=== PATIENT | female | born 1980 | race Hispanic/Latino ===

== ENCOUNTER 2017-10-01 10:16 | Outpatient (CLI) | payer BC | END 2017-10-01 10:17 | disposition home or self-care (01) | LOC: BICMAMMO 10:16 | PROVIDERS: ATTEND Nurse Practitioner Women's Health | DX: N64.4 Mastodynia (principal) | CPT/HCPCS: 76856; 77066; 93976; G0279 ==

== ENCOUNTER 2020-04-19 09:09 | Outpatient (CLI) | payer OTHER | END 2020-04-19 09:10 | disposition home or self-care (01) | LOC: BICULT 09:09 | PROVIDERS: ATTEND Nurse Practitioner Family | DX: R10.2 Pelvic and perineal pain (principal); R19.09 Other intra-abdominal and pelvic swelling, mass and lump | CPT/HCPCS: 76856; 93975 ==

== ENCOUNTER 2020-04-22 07:31 | Inpatient (IN) | payer BC, SELFPAY ==
[2020-04-22] MEDS ORDERED: Ketorolac Tromethamine 30 MG/ML VIAL ONE (08:26)
[2020-04-22] MEDS ORDERED: Ondansetron PF 4 MG/2 ML Vial ONE (08:26)
[2020-04-22 08:36] LABS: Bilirubin Negative (Negative); Blood, Urine Negative (Negative); Clarity Clear (Clear); Glucose, Urine (Dipstick) Greater than 1000 mg/dL (Negative); Ketone, Urine 100 mg/dL (Negative); Leukocyte Negative Leu/uL (Negative); Nitrite Negative (Negative); Protein, Urine (Dipstick) 20 mg/dL (Neg-Trace); Specific Gravity, Urine 1.043 (1.002-1.036); Urobilinogen Normal mg/dL (Less than 2); pH, Urine 6.5 (5.0-9.0)
[2020-04-22 08:37] LABS: Pregnancy Test - Urine (BHCG) Negative (Negative); Pregu Control Background? CLEAR/WHITE (CLR/WHITE); Pregu Control Bar Appear? YES (CONTROL BAR); Specific Gravity 1.043 (1.002-1.036)
[2020-04-22 08:43] LABS: #Basophils 0.1 thou/uL (0.0-0.2); #Eosinphils 0.2 thou/uL (0.0-0.7); #Lymphocytes 1.6 thou/uL (1.20-3.40); %Basophils 0.4 % (0.0-1.0); %Eosinophils 1.9 % (0.0-10.0); %Lymphocytes 12.3 % (21.0-51.0); %Monocytes 7.8 % (0.0-10.0); %Neutrophils 77.6 % (42.0-75.0); Hemoglobin 13.4 g/dL (12.0-16.0); Mean Corpuscular HGB CONC 32.8 g/dL (32.0-36.0); Mean Corpuscular Hemoglobin 29.8 pg (27.0-31.0); Mean Corpuscular Volume 90.8 fL (78.0-98.0); Mean Platelet Volume 6.2 fL (7.4-10.4); Platelet Count 570 thou/uL (130-400); RBC Distribution Width 11.8 % (11.5-14.5); White Blood Cell (WBC) Count 12.8 thou/uL (4.8-10.8)
[2020-04-22 09:01] LABS: Anion Gap 13 mmol/L (10-20); BUN (Urea Nitrogen) 10 mg/dL (7.0-18.7); Calc. Creatinine Clearance 0 mL/min (70-130); Carbon Dioxide 28 mmol/L (22-29); Chloride 100 mmol/L (98-107); Potassium 4.2 mmol/L (3.5-5.1); Sodium 137 mmol/L (136-145)
[2020-04-22 09:02] LABS: ALT (SGPT) 8 U/L (8-55); AST (SGOT) 11 U/L (5-34); Albumin 3.3 g/dL (3.5-5.0); Alkaline Phosphatase 104 U/L (40-110); Bilirubin, Total 0.4 mg/dL (0.2-1.2); Calcium 9.1 mg/dL (7.8-10.44); Globulin 3.9 g/dL (2.4-3.5); Glucose 324 mg/dL (70-105); Protein, Total 7.2 g/dL (6.0-8.3)
[2020-04-22] MEDS ORDERED: Magnevist 469MG/ML 20 ML VIAL ONE (10:39)
--- NOTE | 2020-04-22 10:55 | ULT ---
Pelvic ultrasound: 04/22/2020 COMPARISON: 04/19/2020 HISTORY: Pelvic pain TECHNIQUE: Multiplanar grayscale sonographic imaging of the pelvis provided with transabdominal and e ndovaginal imaging. The ovaries are assessed with Doppler interrogation including color flow and spectral analysis. FINDINGS: Nonspecific small/moderate volume free fluid is noted in the pelvic colon the sac. Endometr ium measures approximately 6 mm in thickness. The uterus measures 8.5 x 5.1 x 5.5 cm. There is a hypoechoic area in the region of the lower uterine segment measuring 4 x 8 mm, which may represent co mplex cystic structure or small volume complex fluid within the endocervical canal. There is an ill-defined complex hypoechoic abnormality in the "left adnexa" measuring approximately 5 .7 x 4.6 x 4.7 cm. The left ovary cannot be discretely visualized on this exam. There is ill-defined complex hypoechoic abnormality may represent a lesion within the left ovary or adjacent t o the left ovary. The right ovary measures approximately 2.5 x 3.8 x 2.8 cm and demonstrates blood flow. There is an il l-defined hypoechoic lesion immediately adjacent to the superior aspect of the right ovary measuring 5.0 x 2.1 x 2.9 cm. Findings within the adnexal regions appear similar when compared to the prior examination. IMPRESSION: Nonspecific hypoechoic lesions within the left adnexal region and the right para ovarian/ adnexal region. These findings could be related to adnexal/ovarian masses, tubo-ovarian abscess, and/or ectopic in the proper clinical setting. Clinical correlation is advised. As recommen ded on the 04/19/2020 exam, pelvic MRI may be beneficial. Results discussed with Dr. Flaherty 10:50 AM 04/22/2020
[2020-04-22] MEDS ORDERED: Insulin Regular 300 UNITS/3 ML VIAL ONE (15:02)
--- NOTE | 2020-04-22 15:08 | MRI ---
MRI PELVIS WITH AND WITHOUT IV CONTRAST: HISTORY: Pelvic pain, left lower quadrant pain, mass. FINDINGS: There are heterogeneously enhancing bilateral adnexal masses measuring 3.8 cm on the right and 7.4 cm on the left. There is a moderate amount of free fluid in the pelvis with enhancement of the periton eum. No uterine mass is seen. The bony structures are unremarkable. A normal-appearing appendix is present. IMPRESSION: Findings are consistent with bilateral tubo-ovarian abscesses. Discussed over the telephone with ER physician, Dr. Sammy Flaherty, at 2:37 p.m. CODE CR POS: OFF
--- NOTE | 2020-04-22 15:24 | PDOC.BPN ---
- Brief Progress Note Ptaient seen by me. Please see H&P. Hospital pharmacy doesnt carry insulin /30 nor farxiga...I will consult FM to help with DM meds and control
--- NOTE | 2020-04-22 15:26 | PDOC.BPN ---
- Brief Progress Note H&P addendum: Just dictated H&P. Did not dictate that her prior surgery included bilateral cataracts from her DM.
--- NOTE | 2020-04-22 15:32 | PDOC.BPN ---
- Brief Progress Note Discussed case with FM environmental property assessor team. They will assist in care for DM.
--- NOTE | 2020-04-22 15:35 | HP ---
LOCATION: ER bed 5. REASON FOR ADMISSION: Pelvic pain/suspected TOA (tubo-ovarian abscess). HISTORY OF PRESENT ILLNESS: In brief, this patient was first evaluated by Dr. Flaherty in the emergency department with a chief complaint of pelvic pain. This patient states that she has diabetes that has been difficult to control and is followed by Dr. Canela at [facility] in [place]. The patient was actually seen on 04/19/2020 when she had a pelvic ultrasound at that time. She states that she came in for the same complaint of this pretty consistent nonprogressive pelvic pain in the lower pelvis that feels achy. On 04/19, on review of the medical record, I find that she had a gallbladder ultrasound performed, that showed normal abdominal ultrasound. She also had a pelvic ultrasound done on 04/19/2020, which showed that the uterus was about 9 x 5 x 5 cm with an endometrium of 0.7 cm. There was a left poorly seen adnexal mass of about 5 x 5 x 7 cm at that time; and on the right, they could not identify normal-appearing ovary, but again some ill-defined mass about 2 x 2 x 3 cm or so. There was also a "oblong component" measuring 2 x 4 cm, this was described as solid and had blood flow within it, but no abnormal fluid collection. She was sent home at that time. She states that she came back because of this persistent bilateral lower pelvic pressure. She denies any vaginal bleeding outside of a recent period, which she states was on 04/18/2020. She is sexually active with the same partner (male) and states that she is not at risk for STI. She came in today and underwent a repeat ultrasound, which showed findings as before, but had an MRI today for further clarification, and the MRI, per radiologist, is compatible with bilateral tubo-ovarian abscesses. I have also explained this to the patient at bedside. REVIEW OF SYSTEMS: GENERAL: No sick contacts. No fever. No chills. PULMONARY: No shortness of breath. CARDIOVASCULAR: No chest pain. EXTREMITIES: No unusual lower leg extremities or unusual calf pain. PAST MEDICAL HISTORY: She has a history of diabetes, which was undiagnosed for a long period of time according to her story. She is managed by Dr. Canela. She states her sugars run in the 200s. MEDICATIONS: Include: 1. 70/30 insulin 30 units b.i.d. 2. Glyburide 5 mg daily. 3. Farxiga 10 mg daily. 4. Januvia at 100 mg daily. ALLERGIES: NONE. PAST SURGICAL HISTORY: She has had 3 C-sections with a tubal ligation with the last. Bilateral Cataract surgeries. SOCIAL HISTORY: Denies alcohol, tobacco, or drug use. PHYSICAL EXAMINATION: VITAL SIGNS: Blood pressure 125/89, pulse is 95 to 100, and O2 saturation is 98% on room air. GENERAL: I find her in no acute distress, lying comfortably in bed. ABDOMEN: Nondistended and nonrigid. She does have some pain on deep palpation in the bilateral lower quadrants. PELVIC: Deferred. IMAGING STUDIES: Please see HPI for this. ED LABS: WBC 12; normal AST and ALT. Creatinine is .7. Glucose was 320s on CMP. ASSESSMENT: This is a 40-year-old, G3, P3, previous x3, with a history of previous BTL, who has diabetes under poor control, now with persistent (non- acute) pelvic pain bilaterally. MRI with likely bilateral tubo-ovarian abscess. PLAN: 1. I have explained the findings to the patient. 2. Diabetes mellitus. We will continue with her diabetic diet. Continue her same medications and prevent hyperglycemia with p.r.n. lispro or regular insulin. 3. For her TOA: I will begin cefoxitin, doxy, and Flagyl per CDC. 4. Follow symptomatically. 5. I have requested gonorrhea and chlamydia PCR to be done in the emergency department prior to starting antibiotics. I gave this recommendation to Dr. Flaherty who told me he placed the order. 6. We will admit the patient for at least 2 days of antibiotics to see if she is better. I did explain to the patient that this is usually treated medically with repeat ultrasound and followup in 6-8 weeks. I did advise her that it is unlikely that these will resolve completely if these are tubo-ovarian abscesses, though we are more concerned with her feeling better than removal of the mass. I did discuss with her that removal of the mass may be difficult at a later time because of the infection state. 7. If her sugars prove to be difficult to control, we may consult Family Medicine for assistance. Job ID: [id number] [facility]
[2020-04-22] MEDS ORDERED: Dextrose 5% in Water 1,000 ML IV PRN (15:45)
[2020-04-22] MEDS ORDERED: Dextrose 50% Abboject 50 ML SYRINGE SLOW IVP PRN (15:45)
[2020-04-22] MEDS ORDERED: Insulin Regular 300 UNITS/3 ML VIAL SC PRN (15:45)
[2020-04-22 16:32] LABS: Hemoglobin A1c 11.3 % (4.0-6.0)
[2020-04-22 16:59] VITALS: BMI 27.4
[2020-04-22] MEDS: Gemfibrozil 600 MG TAB PO SCH (17:29)
[2020-04-22] MEDS: Lactated Ringer's 1,000 ML IV SCH ×2 (17:30→23:31)
[2020-04-22] MEDS: Doxycycline 100 MG CAP PO SCH (21:28)
[2020-04-22] MEDS: cefOXitin Sodium/Dextrose,Iso 2 GM in Premix Bag 1 BAG IVPB SCH (21:29)
[2020-04-22] MEDS: metroNIDAZOLE 500 MG in Premix Bag 1 BAG IVPB SCH (22:28)
[2020-04-22] MEDS: HumuLIN 70/30 (300 UNITS/3 ML VIAL) SC SCH (22:43)
[2020-04-22] MEDS: HumaLOG 300 UNITS/3 ML VIAL SC PRN (22:45)
[2020-04-22] MEDS ORDERED: Ketorolac Tromethamine 10 MG TAB PO SCH (23:59)
[2020-04-23] MEDS: HumaLOG 300 UNITS/3 ML VIAL SC PRN ×4 (05:58→22:24)
[2020-04-23] MEDS: cefOXitin Sodium/Dextrose,Iso 2 GM in Premix Bag 1 BAG IVPB SCH ×3 (06:00→22:00)
[2020-04-23] MEDS: metroNIDAZOLE 500 MG in Premix Bag 1 BAG IVPB SCH ×3 (06:00→22:00)
--- NOTE | 2020-04-23 06:28 | PDOC.BPN ---
- Brief Progress Note Encounter Date: 04/23/20 Encounter Time: 06:30 HD2 Admitted Wednesday04/22/20 DX: Likely Bilateral TOAs with left 7cm S. States feels about the same this AM. Hanna po. O. Afebrile since admit. Initial WBC 12...CBC pending today 1400 BPs 120/80-110s/60 Abd: nondistended A/P: HD 2 on IV cefoxition, flagyl and po doxy. GC and CHL pending.VP3 negative. As ABX only 1 day, continue plan. I am aware that TOAs greater than 5cm may take longer to improve...this was discussed with her.
--- NOTE | 2020-04-23 06:37 | PDOC.PP ---
Post Progress Note Post Day #: 6 hrs Subjective: awake and holding baby. states doing well, thankful for good outcome PO intake tolerated: yes Flatus: yes Ambulation: yes Vital Signs (12 hours) Temp Pulse Resp BP Pulse Ox 04/22/20 19:45 98.7 F 77 18 112/61 99 Weight Weight 150 lb Vitals reviewed: BP max 123/80. Afebrile. Meds: still on A/G/Clinda for 24 hrs - Physical Examination General: NAD Respiratory: non-labored breathing Abdominal: no distention Result Diagrams: 04/22/20 08:31 04/22/20 08:31
[2020-04-23] MEDS: Ketorolac Tromethamine 10 MG TAB PO SCH ×3 (06:59→19:01)
[2020-04-23 07:07] LABS: SARS-CoV-2 PCR by NAA Not Detected (NotDetected)
--- NOTE | 2020-04-23 07:21 | PDOC.FM ---
- Subjective Subjective: Pt says she was nauseous last night, but she feels better this morning. She says the pain is a 7/10 currently. - Objective MAR Reviewed: Yes Vital Signs & Weight: Vital Signs (12 hours) Temp Pulse Resp BP Pulse Ox 04/23/20 00:55 16 04/22/20 19:45 98.7 F 77 18 112/61 99 Weight Weight 68.039 kg Result Diagrams: 04/22/20 08:31 04/22/20 08:31 Phys Exam - Physical Examination Constitutional: NAD HEENT: moist MMs, sclera anicteric Neck: supple Respiratory: clear to auscultation bilateral Cardiovascular: RRR, no significant murmur Gastrointestinal: soft, positive bowel sounds tender in left lower quadrant Musculoskeletal: no edema, pulses present Neurological: moves all 4 limbs Lymphatic: no nodes Psychiatric: normal affect Skin: no rash Dx/Plan (1) TOA (tubo-ovarian abscess) Code(s): N70.93 - SALPINGITIS AND OOPHORITIS, UNSPECIFIED Status: Acute (2) HLD (hyperlipidemia) Code(s): E78.5 - HYPERLIPIDEMIA, UNSPECIFIED Status: Acute (3) HTN (hypertension) Code(s): I10 - ESSENTIAL (PRIMARY) HYPERTENSION Status: Acute (4) IDDM (insulin dependent diabetes mellitus) Code(s): MMX6920 - Status: Acute - Plan Plan: Pt is a 40 yo F with pmh HTND, DM II, HLD, and Glaucoma in the L eye who prese nts for LLQ pain. 1. Tubo-ovarian Abscess WBC: 12.8 -Imaging * MRI: Bilateral Tubo-ovarian Abscess * Pelvic US: Hypointense lesions both adnexa -Meds: Doxy, Flagyl, and Cefoxitin * Tried on Ciprofloxacin without success 2. DMII Home meds: Farxiga, Januvia, Novolog 30U BID, Glyburide * Stopped Glyburide -SSI, Hypoglycemia protocol, ACHS checks -A1C: 9 > 11.3 -Will see what daily requirements are and reassess as needed 3. HTN Home meds: Lisinopril -Will continue and monitor BP 4. HLD Home meds: Gemfibrozil -Will continue 5. Glaucoma of Left eye -MD aware, currently on no medications Dispo: Will adjust insulin based on 24 hour requirement.
[2020-04-23] MEDS ORDERED: glyBURIDE 5 MG TAB PO SCH (08:00)
[2020-04-23] MEDS ORDERED: Alogliptin 25 MG TAB PO SCH (09:00)
[2020-04-23] MEDS ORDERED: FLU VACC QS2020-21(6MOS UP)/PF 60 MCG/0.5 ML SYRINGE IM ONE (09:00)
[2020-04-23] MEDS: Gemfibrozil 600 MG TAB PO SCH ×2 (09:00→16:57)
[2020-04-23] MEDS ORDERED: Ketorolac Tromethamine 10 MG TAB PO SCH (09:00)
[2020-04-23] MEDS: Empagliflozin 25 MG TAB PO SCH (09:01)
[2020-04-23] MEDS: Doxycycline 100 MG CAP PO SCH ×2 (09:01→21:59)
[2020-04-23] MEDS: Alogliptin 25 MG TAB PO SCH (09:02)
[2020-04-23] MEDS: Lisinopril 10 MG TAB PO SCH (09:02)
[2020-04-23] MEDS: Lactated Ringer's 1,000 ML IV SCH ×2 (09:03→14:44)
[2020-04-23] MEDS: HumuLIN 70/30 (300 UNITS/3 ML VIAL) SC SCH ×2 (09:07→22:01)
--- NOTE | 2020-04-23 12:40 | CON ---
DATE OF CONSULTATION: 04/22/2020 SERVICE: [facility]. REASON FOR CONSULTATION: Type 2 diabetes management. HISTORY OF PRESENT ILLNESS: The patient is a 40-year-old female, with a history of high cholesterol, hypertension, diabetes, and glaucoma in the left eye, who presents for pain in the left lower quadrant. The patient states the pain started at 9-10 years of age and worsened after her . She says she usually has the pain before her periods and it usually lasts 2-3 days. However, on 04/06, the patient said that the left lower quadrant pain she had would not resolve and has been ongoing since. The pain she characterizes as a burning or stabbing pain that does not radiate. She says the pain is a 10/10 at times, but currently an 8/10. She went to her doctorHilton her nurse practitioner on 04/11. She was given naproxen and ciprofloxacin. The patient completed the course of antibiotics on the of this month. She says she still was experiencing pain, so she decided to come to the ER to get checked out. In the ER, she was given 6 units of Novolin, Toradol 15 mg, Zofran 4 mg IV, and 1 L of fluid of normal saline. PAST MEDICAL HISTORY: Hyperlipidemia, hypertension, diabetes type 2, and glaucoma of left eye. FAMILY MEDICAL HISTORY: None. PAST SURGICAL HISTORY: Cataracts bilaterally, shunt in left eye, and three C- sections. SOCIAL HISTORY: Denies any tobacco, alcohol, or recreational drug use. She has had 2 total lifetime sexual partners and currently has 1 sexual partner, which is her , whom she is monogamous with and does not use condoms. She lives with her and 3 children. REVIEW OF SYSTEMS: Negative for headache, fever, vision changes, congestion, chest pain, shortness of breath, cough, constipation, diarrhea, vomiting, pain, weakness, numbness, syncope, polyuria, polydipsia, rash. Review of systems was positive for nausea and left lower quadrant pain. PHYSICAL EXAMINATION: VITAL SIGNS: Heart rate 105, respiratory rate 19, O2 saturation 97 on room air, blood pressure 131/82, temperature 98.7, weight 68.4 kg. HEAD: Normocephalic, atraumatic. EYES: Pupils equal, round, reactive to light and accommodation. Extraocular movements intact. ENT: Moist mucous membranes. Clear oropharynx with no lesions. NECK: Supple. HEART: Tachycardic with regular rhythm. No murmurs. RESPIRATORY: Clear to auscultation bilaterally. No increased work of breathing. CHEST: Symmetric movement with inspiration. ABDOMEN: Normal bowel sounds. Tenderness to palpation over the left lower quadrant. No CVA tenderness present. NEURO: Sensation intact. Strength 5/5 in all extremities. Cranial nerves 2 through 12 grossly intact. BACK: Normal on examination with no tenderness. MEDICATIONS: The patient's home medications consist of: 1. Farxiga 10 mg daily. 2. Januvia 100 mg daily. 3. Lisinopril 10 mg daily. 4. Gemfibrozil 600 mg b.i.d. 5. Glyburide 5 mg daily. 6. NovoLog 70/30, 30 units b.i.d. 7. Ciprofloxacin. IMAGIN. MRI that showed bilateral tubo-ovarian abscess. 2. Pelvic ultrasound showed nonspecific hypoechoic lesions in both right and left adnexal regions and recommended MRI. LABORATORY DATA: Significant for a glucose of 324, white blood cell count of 12.8, and platelet count of 570 with an increased neutrophil count. No bands present. Her urine showed a glucose of greater than a 1000 and ketones of greater than 100. ASSESSMENT AND PLAN: The patient is a 40-year-old female, with hypertension, hyperlipidemia, diabetes, and glaucoma, who presents for left lower quadrant pain. 1. Tubo-ovarian abscess. The patient was admitted to the [facility] and is currently being treated with cefoxitin, metronidazole, and doxycycline. MRI and pelvic ultrasound as above. 2. Diabetes type 2. The patient's home medications consist of 70/30, 30 units b.i.d. of NovoLog, glyburide 5 mg daily, Januvia 100 mg daily, Farxiga 10 mg daily. We will continue all home medications except for her glyburide as likely it is ineffective since the patient is already on insulin. We will get an A1c. ACHS glucose checks with sliding scale insulin, that is moderate. Hypoglycemia precautions placed. We will adjust insulin regimen as needed. 3. Hypertension. Continue lisinopril 10 mg daily. 4. Hyperlipidemia. Continue gemfibrozil 600 mg b.i.d. 5. Glaucoma of the left eye, MD aware. 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 Job ID: [id number] I personally evaluated the patient and discussed the management with Dr. Wu on 04/22/19. I agree with the History, Examination, Assessment and Plan documented above with any addition or exceptions noted below. VANESSA
[2020-04-23 13:25] LABS: #Eosinphils 0.2 thou/uL (0.0-0.7); #Lymphocytes 2.3 thou/uL (1.20-3.40); #Monocytes 1.2 thou/uL (0.11-0.59); #Neutrophils 10.3 thou/uL (1.40-6.50); %Basophils 0.3 % (0.0-1.0); %Eosinophils 1.6 % (0.0-10.0); %Lymphocytes 16.3 % (21.0-51.0); %Monocytes 8.5 % (0.0-10.0); %Neutrophils 73.4 % (42.0-75.0); Hemoglobin 12.4 g/dL (12.0-16.0); Mean Corpuscular HGB CONC 33.6 g/dL (32.0-36.0); Mean Corpuscular Hemoglobin 30.5 pg (27.0-31.0); Mean Corpuscular Volume 90.6 fL (78.0-98.0); Mean Platelet Volume 5.9 fL (7.4-10.4); Platelet Count 550 thou/uL (130-400); RBC Distribution Width 11.7 % (11.5-14.5); Red Blood Cell (RBC) Count 4.09 mill/uL (4.20-5.40); White Blood Cell (WBC) Count 14.1 thou/uL (4.8-10.8)
[2020-04-23 21:20] LABS: Chlamydia by PCR Not Detected (NotDetected); GC by PCR Not Detected (NotDetected)
[2020-04-24] MEDS: Ketorolac Tromethamine 10 MG TAB PO SCH ×4 (00:23→17:40)
[2020-04-24] MEDS: Lactated Ringer's 1,000 ML IV SCH ×4 (00:23→20:15)
[2020-04-24] MEDS: cefOXitin Sodium/Dextrose,Iso 2 GM in Premix Bag 1 BAG IVPB SCH ×3 (07:33→22:41)
--- NOTE | 2020-04-24 07:48 | PDOC.FM ---
- Subjective Subjective: Pt states shes is feeling well this morning. She had pain this morning in the left lower quadrant with getting up, but the pain meds and heating pad have helped. - Objective MAR Reviewed: Yes Vital Signs & Weight: Vital Signs (12 hours) Temp Pulse Resp BP Pulse Ox 04/24/20 00:22 98.2 F 82 20 104/68 96 Weight Weight 68.039 kg Result Diagrams: 04/23/20 13:10 04/22/20 08:31 Phys Exam - Physical Examination Constitutional: NAD HEENT: moist MMs, sclera anicteric Neck: supple Respiratory: clear to auscultation bilateral Cardiovascular: RRR, no significant murmur Gastrointestinal: soft, non-tender, positive bowel sounds Musculoskeletal: pulses present Neurological: moves all 4 limbs Lymphatic: no nodes Psychiatric: normal affect Skin: no rash Dx/Plan (1) TOA (tubo-ovarian abscess) Code(s): N70.93 - SALPINGITIS AND OOPHORITIS, UNSPECIFIED Status: Acute (2) HLD (hyperlipidemia) Code(s): E78.5 - HYPERLIPIDEMIA, UNSPECIFIED Status: Acute (3) HTN (hypertension) Code(s): I10 - ESSENTIAL (PRIMARY) HYPERTENSION Status: Acute (4) IDDM (insulin dependent diabetes mellitus) Code(s): GSD1683 - Status: Acute - Plan Plan: Pt is a 40 yo F with pmh HTND, DM II, HLD, and Glaucoma in the L eye who presents for LLQ pain. 1. Tubo-ovarian Abscess WBC: 12.8 > 14.1 -Imaging * MRI: Bilateral Tubo-ovarian Abscess * Pelvic US: Hypointense lesions both adnexa -Meds: Doxy, Flagyl, and Cefoxitin * Tried on Ciprofloxacin without success * Will continue Antibiotics for now 2. DMII Home meds: Farxiga, Januvia, Novolog 30U BID, Glyburide * Stopped Glyburide -SSI, Hypoglycemia protocol, ACHS checks -A1C: 9 > 11.3 -Will see what daily requirements are and reassess as needed -Blood sugar was 78 this morning. Will not increase her morning insulin. -She required 14 units sliding scale overall 3. HTN Home meds: Lisinopril -Will continue and monitor BP 4. HLD Home meds: Gemfibrozil -Will continue 5. Glaucoma of Left eye -MD aware, currently on no medications Dispo: Will adjust insulin as needed. Sugars are improving with treatment of abscesses.
[2020-04-24] MEDS: metroNIDAZOLE 500 MG in Premix Bag 1 BAG IVPB SCH ×3 (07:50→21:10)
--- NOTE | 2020-04-24 08:14 | PRG ---
DATE OF SERVICE: 04/24/2020 SUBJECTIVE: The patient is a 40-year-old female who presented to the emergency room on 04/22/2020 and was diagnosed with bilateral tubo-ovarian abscesses and admitted to the hospital for IV antibiotics. The patient is currently on cefoxitin, Flagyl, and doxycycline. The patient reports that she continues to have some pain, though seems to be fairly well managed with her current regimen. OBJECTIVE: VITAL SIGNS: The patient has been afebrile overnight. Current vital signs; 104/68 is blood pressure, temperature 98.2, pulse of 82, respiratory rate 20, saturating 96% on room air. GENERAL: She appears to be in no acute distress this morning. She reports that she had some pain when she got up to go to the bathroom, but Toradol seemed to have improved her pain. LABORATORY DATA: White count is up slightly from 12.8 to 14.1, hemoglobin 12.4, hematocrit 37.0, platelets stable at 550,000. Left shift is coming down, that is 73.4%. VPIII has returned and is negative for Trichomonas, Gardnerella, and Meliza. GC/chlamydia is still pending. Her other diagnoses of significance include diabetes that is being managed by the family medicine team, who was consulted on the case. Anticipate antibiotic use for the next day or two and possible discharge home with p.o. antibiotics. Job ID: [id number]
[2020-04-24] MEDS: Gemfibrozil 600 MG TAB PO SCH ×2 (08:38→16:13)
[2020-04-24] MEDS: Doxycycline 100 MG CAP PO SCH ×2 (08:38→21:10)
[2020-04-24] MEDS: Empagliflozin 25 MG TAB PO SCH (08:38)
[2020-04-24] MEDS: Alogliptin 25 MG TAB PO SCH (08:39)
[2020-04-24] MEDS: Lisinopril 10 MG TAB PO SCH (08:39)
[2020-04-24] MEDS ORDERED: Insulin Glargine 24 UNITS in Pre-Filled Syringe 1 EACH SC SCH (09:45)
[2020-04-24] MEDS: HumuLIN 70/30 (300 UNITS/3 ML VIAL) SC SCH (09:46)
[2020-04-24] MEDS: HumaLOG 300 UNITS/3 ML VIAL SC PRN ×2 (12:17→17:41)
[2020-04-24] MEDS ORDERED: HYDROcodone/Acetaminophen 5/325 mg Tablet PO PRN (20:49)
[2020-04-24] MEDS: HYDROcodone/Acetaminophen 5/325 mg Tablet PO PRN (21:09)
[2020-04-24] MEDS: Insulin Glargine 24 UNITS in Pre-Filled Syringe 1 EACH SC SCH (21:16)
[2020-04-25] MEDS: Ketorolac Tromethamine 10 MG TAB PO SCH ×4 (00:02→17:29)
[2020-04-25] MEDS: metroNIDAZOLE 500 MG in Premix Bag 1 BAG IVPB SCH ×3 (05:29→21:13)
[2020-04-25] MEDS: HYDROcodone/Acetaminophen 5/325 mg Tablet PO PRN ×4 (05:39→22:36)
--- NOTE | 2020-04-25 06:03 | PDOC.BPN ---
- Brief Progress Note Encounter Date: 04/25/20 Encounter Time: 06:00 S: Patient had pain uncontrolled with toradol yesterday. Pain much improved with addition of Whitney. No other complaints this morning. O: Vital Signs - Most Recent Temp Pulse Resp BP Pulse Ox 98.2 F 83 18 110/58 L 98 04/25/20 05:39 04/25/20 05:39 04/25/20 05:39 04/25/20 05:39 04/25/20 05:39 Gen: AAO, NAD Abd: soft, TTP LLQ>RLQ, no rebound Ext: No edema Labs: Pending A/P: 40 y/o with bilateral TOA on Doxy/Flagyl/Cefoxitin. Tm 99.3. Toradol and Whitney for pain control. Will repeat CBC this morning to assess trend. Continue current management.
[2020-04-25 06:27] LABS: #Basophils 0.1 thou/uL (0.0-0.2); #Eosinphils 0.3 thou/uL (0.0-0.7); #Monocytes 1.1 thou/uL (0.11-0.59); #Neutrophils 9.9 thou/uL (1.40-6.50); %Basophils 0.4 % (0.0-1.0); %Eosinophils 2.1 % (0.0-10.0); %Lymphocytes 14.7 % (21.0-51.0); %Monocytes 8.6 % (0.0-10.0); %Neutrophils 74.2 % (42.0-75.0); Hemoglobin 11.6 g/dL (12.0-16.0); Mean Corpuscular HGB CONC 32.3 g/dL (32.0-36.0); Mean Corpuscular Volume 89.8 fL (78.0-98.0); Platelet Count 489 thou/uL (130-400); Red Blood Cell (RBC) Count 4.01 mill/uL (4.20-5.40); White Blood Cell (WBC) Count 13.3 thou/uL (4.8-10.8)
[2020-04-25] MEDS: cefOXitin Sodium/Dextrose,Iso 2 GM in Premix Bag 1 BAG IVPB SCH ×3 (06:44→22:40)
[2020-04-25] MEDS: Lactated Ringer's 1,000 ML IV SCH ×3 (06:48→23:30)
--- NOTE | 2020-04-25 07:01 | PDOC.FM ---
- Subjective Subjective: The pt is doing better this morning. She is denying any pain currently. - Objective MAR Reviewed: Yes Vital Signs & Weight: Vital Signs (12 hours) Temp Pulse Resp BP Pulse Ox 04/25/20 05:39 98.2 F 83 18 110/58 L 98 04/25/20 00:00 98.7 F 87 18 115/71 99 04/24/20 19:22 99.3 F 88 12 120/83 99 Weight Weight 68.039 kg I&O: 04/23/20 04/24/20 04/25/20 06:59 06:59 06:59 Intake Total 5050 Output Total 4150 Balance 900 Result Diagrams: 04/25/20 06:18 04/22/20 08:31 Phys Exam - Physical Examination Constitutional: NAD HEENT: moist MMs, sclera anicteric Neck: supple Respiratory: clear to auscultation bilateral Cardiovascular: RRR, no significant murmur Gastrointestinal: soft, non-tender, positive bowel sounds Musculoskeletal: no edema, pulses present Neurological: moves all 4 limbs Psychiatric: normal affect Skin: no rash, normal turgor Dx/Plan (1) TOA (tubo-ovarian abscess) Code(s): N70.93 - SALPINGITIS AND OOPHORITIS, UNSPECIFIED Status: Acute (2) HLD (hyperlipidemia) Code(s): E78.5 - HYPERLIPIDEMIA, UNSPECIFIED Status: Acute (3) HTN (hypertension) Code(s): I10 - ESSENTIAL (PRIMARY) HYPERTENSION Status: Acute (4) IDDM (insulin dependent diabetes mellitus) Code(s): KCW7444 - Status: Acute - Plan Plan: Pt is a 40 yo F with pmh HTND, DM II, HLD, and Glaucoma in the L eye who presents for LLQ pain. 1. Tubo-ovarian Abscess WBC: 12.8 > 13.3 -Imaging * MRI: Bilateral Tubo-ovarian Abscess * Pelvic US: Hypointense lesions both adnexa -Meds: Doxy, Flagyl, and Cefoxitin * Tried on Ciprofloxacin without success * Primary team managing Abx 2. DMII Home meds: Farxiga, Januvia, Novolog 30U BID, Glyburide * Stopped Glyburide -SSI, Hypoglycemia protocol, ACHS checks -A1C: 9 > 11.3 -Will see what daily requirements are and reassess as needed -Blood sugar was 78 this morning. Will not increase her morning insulin. -She required 6 units sliding scale yesterday -Changed from Novolog to Levemir 24 U BID, BG 98-226 will increase by 1U BID 3. HTN Home meds: Lisinopril -Will continue and monitor BP 4. HLD Home meds: Gemfibrozil -Will continue 5. Glaucoma of Left eye -MD aware, currently on no medications Dispo: Adjusted insulin. Will continue to follow and adjust.
[2020-04-25] MEDS: Insulin Glargine 24 UNITS in Pre-Filled Syringe 1 EACH SC SCH (09:45)
[2020-04-25] MEDS: Lisinopril 10 MG TAB PO SCH (09:45)
[2020-04-25] MEDS: Gemfibrozil 600 MG TAB PO SCH ×2 (09:46→17:30)
[2020-04-25] MEDS: Doxycycline 100 MG CAP PO SCH ×2 (09:46→21:12)
[2020-04-25] MEDS: Empagliflozin 25 MG TAB PO SCH (09:46)
[2020-04-25] MEDS: Alogliptin 25 MG TAB PO SCH (09:46)
[2020-04-25] MEDS ORDERED: Insulin Glargine 25 UNITS in Pre-Filled Syringe 1 EACH SC SCH (21:00)
[2020-04-26] MEDS: Ketorolac Tromethamine 10 MG TAB PO SCH ×3 (00:07→12:11)
[2020-04-26] MEDS: Lactated Ringer's 1,000 ML IV SCH ×2 (02:45→15:12)
[2020-04-26] MEDS: metroNIDAZOLE 500 MG in Premix Bag 1 BAG IVPB SCH (05:13)
[2020-04-26] MEDS: HumaLOG 300 UNITS/3 ML VIAL SC PRN ×2 (06:18→20:41)
[2020-04-26] MEDS: cefOXitin Sodium/Dextrose,Iso 2 GM in Premix Bag 1 BAG IVPB SCH (06:22)
[2020-04-26] MEDS: HYDROcodone/Acetaminophen 5/325 mg Tablet PO PRN ×3 (06:26→16:23)
--- NOTE | 2020-04-26 06:49 | PDOC.FM ---
- Subjective Subjective: Discussed with pt about insulin. She says she had swelling all over with lantus, but she has been getting the medication here. She also states she is out of test strips to check her sugars at home. She says her pain is improved and is now 5/10. - Objective MAR Reviewed: Yes Vital Signs & Weight: Vital Signs (12 hours) Temp Pulse Resp BP Pulse Ox 04/26/20 05:05 98.7 F 78 18 110/65 04/26/20 00:05 98.5 F 87 18 114/65 04/25/20 19:31 98.5 F 83 12 107/66 98 Weight Weight 68.039 kg I&O: 04/24/20 04/25/20 04/26/20 06:59 06:59 06:59 Intake Total 5050 Output Total 4150 Balance 900 Result Diagrams: 04/25/20 06:18 04/22/20 08:31 Phys Exam - Physical Examination Constitutional: NAD HEENT: moist MMs, sclera anicteric Neck: supple Respiratory: clear to auscultation bilateral Cardiovascular: RRR, no significant murmur Gastrointestinal: soft, positive bowel sounds tender to palpitation in the lower quadrants Musculoskeletal: no edema, pulses present Neurological: moves all 4 limbs Psychiatric: normal affect Skin: no rash Dx/Plan (1) TOA (tubo-ovarian abscess) Code(s): N70.93 - SALPINGITIS AND OOPHORITIS, UNSPECIFIED Status: Acute (2) HLD (hyperlipidemia) Code(s): E78.5 - HYPERLIPIDEMIA, UNSPECIFIED Status: Acute (3) HTN (hypertension) Code(s): I10 - ESSENTIAL (PRIMARY) HYPERTENSION Status: Acute (4) IDDM (insulin dependent diabetes mellitus) Code(s): [id number] - Status: Acute - Plan Plan: Pt is a 40 yo F with pmh HTND, DM II, HLD, and Glaucoma in the L eye who presents for LLQ pain. 1. Tubo-ovarian Abscess WBC: 12.8 > 13.3 -Imaging * MRI: Bilateral Tubo-ovarian Abscess * Pelvic US: Hypointense lesions both adnexa -Meds: Doxy, Flagyl, and Cefoxitin * Tried on Ciprofloxacin without success * Primary team managing Abx 2. DMII Home meds: Farxiga, Januvia, Novolog 30U BID, Glyburide * Stopped Glyburide -SSI, Hypoglycemia protocol, ACHS checks -A1C: 9 > 11.3 -Will see what daily requirements are and reassess as needed -Blood sugar was 78 this morning. Will not increase her morning insulin. -She required 6 units sliding scale yesterday -Changed from Novolog to Lantus 52 QAM, BG 75-240 will keep the insulin at this current level * Pt stated that Lantus made her swell in the past. She is ok with trying the medication again. 3. HTN Home meds: Lisinopril -Will continue and monitor BP 4. HLD Home meds: Gemfibrozil -Will continue 5. Glaucoma of Left eye -MD aware, currently on no medications Dispo: Insulin appropriately titrated.
[2020-04-26] MEDS: Gemfibrozil 600 MG TAB PO SCH ×2 (07:53→16:23)
--- NOTE | 2020-04-26 08:11 | PRG ---
DATE OF SERVICE: 04/26/2020 TIME OF SERVICE: 0710 hours. SUBJECTIVE: Ms. 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 She is resting comfortably this morning. Reports that her pain at max is 6/10. She has had some nausea, no vomiting overnight. OBJECTIVE: VITAL SIGNS: T-max and T-current 98.7, pulse 78, respirations 18, blood pressure 110/65. HEENT: Within normal limits. LUNGS: Clear to auscultation bilaterally. HEART: Regular rhythm. ABDOMEN: Nondistended. Bowel sounds heard in all 4 quadrants. She has tenderness to palpation in the left lower quadrant. She has no rebound. EXTREMITIES: Without clubbing, cyanosis, or edema. VAGINAL/PELVIC: Deferred. LABORATORY DATA: The patient's white count yesterday was trending down. We will repeat tomorrow. Her hemoglobin A1c is 11.6, indicating poor chronic control of her diabetes. Blood sugar last night was 162. During the day yesterday, they ran between 75 and 226, managed by Family Medicine residents. Cultures are no growth. Imaging was reviewed and discussed with Radiology. They did not feel there was a drainable fluid collection and that the findings on MRI are more suggestive of a soft tissue rather than abscess. IMPRESSION: Chronic tubo-ovarian abscess possibly linked to diverticulitis considering location and patient's age and her post tubal ligation status. This is unlikely a sexually transmitted tubo-ovarian abscess or chronic salpingitis. Complicated by prior section history as well as diabetes. PLAN: Discussed with the patient options. I feel surgery at this point in time is not warranted and is likely to be less than satisfactory as well as significantly difficult. We will continue on IV antibiotics. Plan to do so for approximately 6 to 7 days. If remains afebrile, consider discharge home on fluoroquinolone for another 2 weeks with re-evaluation after that. May consider re-evaluating with MRI at approximately antibody day #6 to #8. The patient understands this treatment plan and is agreeing with that. Job ID: [id number]
--- NOTE | 2020-04-26 08:12 | PDOC.BPN ---
- Brief Progress Note OnCall note HD5 DX: Presumed TOAs bilaterally Continue ABX IR did not feel like the left mass area was amendable to drainage as more in flammatory than purulent (phlegmon). Continue plan.
[2020-04-26] MEDS: Alogliptin 25 MG TAB PO SCH (09:27)
[2020-04-26] MEDS: Empagliflozin 25 MG TAB PO SCH (09:27)
[2020-04-26] MEDS: Lisinopril 10 MG TAB PO SCH (09:28)
[2020-04-26] MEDS: Insulin Glargine 52 UNITS in Pre-Filled Syringe 1 EACH SC SCH (09:28)
[2020-04-26] MEDS: Doxycycline 100 MG CAP PO SCH ×2 (09:28→20:40)
--- NOTE | 2020-04-26 10:35 | PDOC.BPN ---
<Kiley Barrett - Last Filed: 04/26/20 10:28> - Brief Progress Note Encounter Date: 04/26/20 Encounter Time: 10:00 Ms. Grover is a 40 year old female hospitalized for a suspected tuboovarian abscess. She was doing well this morning at the time of the exam. She continues reporting LLQ burning pain with intermittent sharp pain; rates it a severity of 5/10. These are mitigated with pain medication. She reports being nauseous without any episodes of emesis along with some diarrhea likely due to antibiotics. She also reports occasional vaginal spotting that began last night - did not require sanitary pads or tampons and did not soak through her underwear. Denies it being a steady flow and is not heavy. She denies any dysuria, dizziness, chest pain, shortness of breath, hematuria, hematochezia, loss of appetite and chills. Physical exam CTAB RRR NABS, tender to palpation primarily in LLQ, soft, non-distended No peripheral edema Plan * Possibly manage nausea with phenergan * continue pain management * continue antibiotics for management of presumed TOA <Clint Ramos - Last Filed: 04/26/20 10:40> - Brief Progress Note Facul;ty Note: Agreed. We will start Zofran to avoid over-sedation with pheneragan. Hct noted...dilation effect? Trend and follow
[2020-04-26] MEDS ORDERED: Ondansetron PF 4 MG/2 ML Vial IVP PRN (10:38)
--- NOTE | 2020-04-26 10:45 | PDOC.BPN ---
- Brief Progress Note JULIÁN HD 5 As afebrile since admit, I will transition to PO ABX as we plan on possible home transition soon. Would recommend po DOXY and po FLAGYL for now. She is concerned about getting home and if better on po ABX for 24-48 hrs, may DC home as this is likely chronic condition. Total ABX use 14 days.
[2020-04-26] MEDS: metroNIDAZOLE 500 MG TAB PO SCH ×2 (15:11→20:40)
--- NOTE | 2020-04-27 03:34 | PDOC.BPN ---
- Brief Progress Note HD6 DX: IDDM, TOAs bilaterally. Pelvic pain Meds: po Doxy and Flagyl S. Feels better than at admit but still has some left lower abd "buring" sensation. Hanna po. O.Tmax 99.p' BPs wnl 120-110/70s on average, pulse 80-90s. CBC pending this AM. PE: NAD Nonsurgical ABD (no distension, no guarding) A/P: HD6 with IDDM and bilateral TOAs Left greater than rt...suspected phlegmon. Improving slowly. I discussed with her continued po ABX inhouse to see her response. I reviewed the IR thought of drainage with her and why that was not elected. Prob [facility] home tomorrow Wednesday the if stable, to continue ABX for total of 5 more days. IDDM being controlled by FM and are better than at admit but still a bit labile...she has outp[atient follow up for that. Continue inhouse obs today.
[2020-04-27 06:30] LABS: #Basophils 0.1 thou/uL (0.0-0.2); #Eosinphils 0.3 thou/uL (0.0-0.7); #Lymphocytes 2.2 thou/uL (1.20-3.40); #Neutrophils 9.6 thou/uL (1.40-6.50); %Basophils 0.7 % (0.0-1.0); %Eosinophils 2.1 % (0.0-10.0); %Lymphocytes 16.9 % (21.0-51.0); %Monocytes 7.4 % (0.0-10.0); Hemoglobin 12.3 g/dL (12.0-16.0); Mean Corpuscular Volume 90.8 fL (78.0-98.0); Mean Platelet Volume 6.3 fL (7.4-10.4); Platelet Count 493 thou/uL (130-400); Red Blood Cell (RBC) Count 4.23 mill/uL (4.20-5.40); White Blood Cell (WBC) Count 13.1 thou/uL (4.8-10.8)
[2020-04-27] MEDS: HYDROcodone/Acetaminophen 5/325 mg Tablet PO PRN ×4 (06:45→20:24)
--- NOTE | 2020-04-27 07:02 | PDOC.FM ---
- Subjective Subjective: pt resting comfortably in bed, reports minimal pain. denies hypoglycemia symptoms - Objective Vital Signs & Weight: Vital Signs (12 hours) Temp Pulse Resp BP Pulse Ox 04/26/20 19:38 99.0 F 96 12 104/58 L 98 Weight Weight 68.039 kg Result Diagrams: 04/27/20 06:10 04/22/20 08:31 Phys Exam - Physical Examination Constitutional: NAD HEENT: moist MMs Neck: full ROM Respiratory: clear to auscultation bilateral Cardiovascular: RRR Gastrointestinal: no distention Musculoskeletal: no edema Neurological: moves all 4 limbs Psychiatric: normal affect Skin: no rash Dx/Plan - Plan Plan: Tubo-ovarian Abscess - mgmt per primary team, transitioning to PO w/ plans to DC wednesday on PO abx 2. DMII -glyburide and novolog have been dc'd, lantus started -SSI, Hypoglycemia protocol, ACHS checks -Lantus 52 QAM, BG 75-240 will keep the insulin at this current level 3. HTN Home meds: Lisinopril -Will continue and monitor BP 4. HLD Home meds: Gemfibrozil -Will continue 5. Glaucoma of Left eye -aware, currently on no medications Dispo: Insulin appropriately titrated. Addendum - Attending - Attending Attestation Date/Time: 04/27/20 0908 I personally evaluated the patient and discussed the management with Dr. Jessica. I agree with the History, Examination, Assessment and Plan documented above with any addition or exceptions noted below. No cp/sob No n/v Still with abdominal pain.
[2020-04-27] MEDS: Lactated Ringer's 1,000 ML IV SCH ×2 (07:40→16:14)
[2020-04-27] MEDS: Empagliflozin 25 MG TAB PO SCH (09:37)
[2020-04-27] MEDS: Doxycycline 100 MG CAP PO SCH ×2 (09:37→20:24)
[2020-04-27] MEDS: metroNIDAZOLE 500 MG TAB PO SCH ×3 (09:37→20:24)
[2020-04-27] MEDS: Lisinopril 10 MG TAB PO SCH (09:37)
[2020-04-27] MEDS: Gemfibrozil 600 MG TAB PO SCH ×2 (09:38→16:21)
[2020-04-27] MEDS: Insulin Glargine 52 UNITS in Pre-Filled Syringe 1 EACH SC SCH (09:43)
[2020-04-27] MEDS: Alogliptin 25 MG TAB PO SCH (12:21)
[2020-04-27] MEDS: HumaLOG 300 UNITS/3 ML VIAL SC PRN (12:22)
[2020-04-28] MEDS: HYDROcodone/Acetaminophen 5/325 mg Tablet PO PRN (01:13)
[2020-04-28] MEDS: Lactated Ringer's 1,000 ML IV SCH ×2 (01:32→07:22)
--- NOTE | 2020-04-28 06:55 | PDOC.FM ---
- Subjective Subjective: pt resting comfortably in bed, to be dc'd today. denies n/v, cp/sob. no hypogycemic symptoms - Objective Vital Signs & Weight: Vital Signs (12 hours) Temp Pulse Resp BP 04/28/20 04:00 80 12 106/67 04/28/20 00:00 98.8 F 80 12 100/60 04/27/20 20:00 99 F 84 12 112/70 Weight Weight 68.039 kg Result Diagrams: 04/27/20 06:10 04/22/20 08:31 Phys Exam - Physical Examination Constitutional: NAD HEENT: moist MMs Neck: supple Respiratory: clear to auscultation bilateral Cardiovascular: RRR Gastrointestinal: no distention Musculoskeletal: pulses present Neurological: moves all 4 limbs Psychiatric: normal affect Skin: no rash Dx/Plan (1) TOA (tubo-ovarian abscess) Code(s): N70.93 - SALPINGITIS AND OOPHORITIS, UNSPECIFIED Status: Acute (2) HLD (hyperlipidemia) Code(s): E78.5 - HYPERLIPIDEMIA, UNSPECIFIED Status: Acute (3) HTN (hypertension) Code(s): I10 - ESSENTIAL (PRIMARY) HYPERTENSION Status: Acute (4) IDDM (insulin dependent diabetes mellitus) Code(s): IUP3749 - Status: Acute - Plan Plan: Tubo-ovarian Abscess - mgmt per primary team, PO abx 2. DMII -glyburide and novolog have been dc'd, lantus started -SSI, Hypoglycemia protocol, ACHS checks -Lantus 52 QAM, BG 75-205 will keep the insulin at this current level 3. HTN Home meds: Lisinopril -Will continue and monitor BP 4. HLD Home meds: Gemfibrozil -Will continue 5. Glaucoma of Left eye -aware, currently on no medications Dispo: Insulin appropriately titrated. fu w/ pcp Addendum - Attending - Attending Attestation Date/Time: 04/28/20 1887 I personally evaluated the patient and discussed the management with Dr. Jessica. I agree with the History, Examination, Assessment and Plan documented above with any addition or exceptions noted below. D/c home and will certainly need close diabetic follow up, which we discussed.
[2020-04-28] MEDS: Gemfibrozil 600 MG TAB PO SCH (09:13)
[2020-04-28] MEDS: Doxycycline 100 MG CAP PO SCH (09:13)
[2020-04-28] MEDS: Alogliptin 25 MG TAB PO SCH (09:13)
[2020-04-28] MEDS: Lisinopril 10 MG TAB PO SCH (09:14)
[2020-04-28] MEDS: metroNIDAZOLE 500 MG TAB PO SCH (09:14)
[2020-04-28] MEDS: Empagliflozin 25 MG TAB PO SCH (09:14)
[2020-04-28] MEDS: Insulin Glargine 52 UNITS in Pre-Filled Syringe 1 EACH SC SCH (09:14)
--- NOTE | 2020-04-28 09:33 | DIS ---
DATE OF ADMISSION: 04/22/2020 DATE OF DISCHARGE: 04/28/2020 SUMMARY OF HOSPITAL COURSE: The patient was admitted with a left tubo-ovarian abscess/phlegmon, status post BTL with poorly controlled diabetes. CT and MRI findings are most consistent with persistent soft-tissue infection more consistent with diverticulitis and infection of adjacent fallopian tubes and sexually transmitted disease with tubo-ovarian abscess. The patient has responded well to prolonged antibiotics and is being discharged home on Flagyl and doxycycline for another 5 days. She has already received 7. She will follow up at [facility] for further evaluation. She is also following up with Dr. Canela for her diabetes care as her hemoglobin A1c was 11.9 on admission. Job ID: [id number]
[2020-04-28 10:07] VITALS: BP 115/64; TEMP 99
== END 2020-04-28 11:20 | disposition home or self-care (01) | DRG 758 ==
LOC: ERS 07:31 → 3SW 15:14
PROVIDERS: ADMIT Obstetrics & Gynecology; ATTEND Obstetrics & Gynecology
DX: N70.93 Salpingitis and oophoritis, unspecified (principal); K57.92 Diverticulitis of intestine, part unspecified, without perforation or abscess without bleeding; H40.9 Unspecified glaucoma; N70.13 Chronic salpingitis and oophoritis; Z20.822 Contact with and (suspected) exposure to COVID-19; E11.65 Type 2 diabetes mellitus with hyperglycemia; E78.5 Hyperlipidemia, unspecified; Z98.42 Cataract extraction status, left eye; Z98.41 Cataract extraction status, right eye; Z79.4 Long term (current) use of insulin; Z79.899 Other long term (current) drug therapy
CPT/HCPCS: 36415; 36416; 74183; 76856; 80053; 81003; 81025; 83036; 85025; 87480; 87491; 87510; 87591; 87635; 87660; 96374; 96375; A9579; J0694; J1815; J1885; J2405; U0003; U0005

== ENCOUNTER 2021-09-05 17:20 | Emergency (ER) | payer BC, SELFPAY ==
[2021-09-05 17:57] LABS: #Basophils 0.1 thou/uL (0.0-0.2); #Eosinphils 0.2 thou/uL (0.0-0.7); #Lymphocytes 1.8 thou/uL (1.20-3.40); #Monocytes 0.7 thou/uL (0.11-0.59); #Neutrophils 7.8 thou/uL (1.40-6.50); %Basophils 0.8 % (0.0-1.0); %Eosinophils 1.8 % (0.0-10.0); %Lymphocytes 16.9 % (21.0-51.0); %Monocytes 6.6 % (0.0-10.0); Hemoglobin 13.2 g/dL (12.0-16.0); Mean Corpuscular Hemoglobin 29.8 pg (27.0-31.0); Mean Corpuscular Volume 87.7 fL (78.0-98.0); Mean Platelet Volume 7.3 fL (7.4-10.4); Platelet Count 295 thou/uL (130-400); RBC Distribution Width 12.6 % (11.5-14.5); Red Blood Cell (RBC) Count 4.44 mill/uL (4.20-5.40); White Blood Cell (WBC) Count 10.5 thou/uL (4.8-10.8)
[2021-09-05 18:16] LABS: ALT (SGPT) 14 U/L (8-55); AST (SGOT) 13 U/L (5-34); Albumin 3.8 g/dL (3.5-5.0); Alkaline Phosphatase 90 U/L (40-110); Anion Gap 16 mmol/L (10-20); BUN (Urea Nitrogen) 21 mg/dL (7.0-18.7); Bilirubin, Total 0.3 mg/dL (0.2-1.2); Calc. Creatinine Clearance 0 mL/min (70-130); Carbon Dioxide 19 mmol/L (22-29); Chloride 104 mmol/L (98-107); Globulin 3.1 g/dL (2.4-3.5); Glucose 507 mg/dL (70-105); Protein, Total 6.9 g/dL (6.0-8.3); Sodium 135 mmol/L (136-145)
[2021-09-05 18:36] LABS: BHCG - Serum Negative (NEGATIVE); Pregs Control Background? CLEAR/WHITE (CLR/WHITE); Pregs Control Bar Appear? YES (CONTROL BAR)
[2021-09-05] MEDS ORDERED: Morphine 4 MG/ML VIAL ONE (18:49)
[2021-09-05] MEDS ORDERED: Ketorolac Tromethamine 30 MG/ML VIAL ONE (18:49)
[2021-09-05 20:21] LABS: Actual Bicarbonate (HCO3v) 21 mEq/L (22-28); Analyzer IN Cardio ER; Base Excess -3.6 mEq/L (-2.0 to +3.0); Calcium, Ionized (venous) 1.15 mmol/L (1.16-1.32); Chloride (VBG) 103 mmol/L (98-106); Hemoglobin (Hb) 13.5 g/dL (11.7-15.5); Potassium (VBG) 3.88 mmol/L (3.70-5.30); Sodium 132.7 mmol/L (133-146); pH (venous) 7.38 (7.32-7.43)
[2021-09-05 20:43] LABS: Bilirubin Negative (Negative); Blood, Urine Negative (Negative); Clarity Clear (Clear); Glucose, Urine (Dipstick) Greater than 1000 mg/dL (Negative); Ketone, Urine Negative (Negative); Leukocyte Negative Leu/uL (Negative); Nitrite Negative (Negative); Protein, Urine (Dipstick) Negative (Neg-Trace); Specific Gravity, Urine 1.029 (1.002-1.036); Urobilinogen Normal mg/dL (Less than 2); pH, Urine 5.5 (5.0-9.0)
== END 2021-09-05 21:23 | disposition home or self-care (01) ==
LOC: ERS 17:20
DX: N83.292 Other ovarian cyst, left side (principal); I10 Essential (primary) hypertension; E11.9 Type 2 diabetes mellitus without complications; E78.5 Hyperlipidemia, unspecified; Z79.84 Long term (current) use of oral hypoglycemic drugs; Z79.899 Other long term (current) drug therapy
CPT/HCPCS: 36415; 76856; 80053; 81003; 82805; 83690; 84703; 85025; 96372; J1885; J2270

== ENCOUNTER 2021-10-29 16:15 | Outpatient (CLI) | payer BC | END 2021-10-29 16:16 | disposition home or self-care (01) | LOC: RAD-FRANK 16:15 | PROVIDERS: ATTEND Nurse Practitioner Family | DX: R05.9 Cough, unspecified (principal) | CPT/HCPCS: 71046 ==

== ENCOUNTER 2022-01-08 09:12 | Outpatient (CLI) | payer BC | END 2022-01-08 09:13 | disposition home or self-care (01) | LOC: DTY/OP 09:12 | PROVIDERS: ATTEND Nurse Practitioner Family | DX: E78.2 Mixed hyperlipidemia (principal); I10 Essential (primary) hypertension | CPT/HCPCS: 97802 ==

== ENCOUNTER 2022-05-14 11:20 | Outpatient (CLI) | payer BC | END 2022-05-14 11:21 | disposition home or self-care (01) | LOC: RAD-FRANK 11:20 | PROVIDERS: ATTEND Nurse Practitioner Family | DX: M25.511 Pain in right shoulder (principal) ==